=== PATIENT | female | born 1980 | race African-American/Black ===

== ENCOUNTER 2016-10-20 13:48 | Emergency (ER) | payer OTHER ==
[~2016-10-20] VITALS: Ht 193 cm; Wt 158.8 kg
[~2016-10-20 13:48] MED LIST: AMOXICILLIN500 M1 PO; ANTIVERT PO; CIPRO250 MG PO; DARVOCET-N 1001 TA1 PO; PEN-VEE K PO; PHENERGAN DM1 ML DOB; ROBAXIN500 MG PO; TAMIFLU75 M1 DOB; ULTRAM PO; VOLTAREN75 MG PO; ZANTAC150 MG PO
== END 2016-10-20 14:32 | disposition home or self-care (01) ==
LOC: CFTX 13:48 → CED 13:48 → CFTX 14:24
DX: L63.9 Alopecia areata, unspecified (principal); E11.9 Type 2 diabetes mellitus without complications; I10 Essential (primary) hypertension; Z98.890 Other specified postprocedural states; Z23 Encounter for immunization
CPT/HCPCS: 90471; 90715; 99282